=== PATIENT | female | born 1960 | race Caucasian/White ===

== ENCOUNTER → 2019-08-24 07:45 | Outpatient (BNVA) | payer OTHER, SELFPAY | PROVIDERS: Family Provider Family Medicine; Visit Provider Nurse Practitioner Psychiatric/Mental Health | DX: F31.81 Bipolar II disorder (principal) | CPT/HCPCS: 99203 ==

== ENCOUNTER → 2019-09-09 08:23 | Outpatient (BNVA) | payer OTHER, SELFPAY | PROVIDERS: Family Provider Family Medicine; Visit Provider Family Medicine | DX: I10 Essential (primary) hypertension (principal); E11.9 Type 2 diabetes mellitus without complications; E78.5 Hyperlipidemia, unspecified; F17.219 Nicotine dependence, cigarettes, with unspecified nicotine-induced disorders | CPT/HCPCS: 80053; 80061; 82044; 83036; 85025 ==

== ENCOUNTER 2019-09-14 07:50 | Outpatient (CLI) | payer OTHER, SELFPAY ==
--- NOTE | 2019-09-14 07:59 | MM_ITS ---
WS: [id number] BILATERAL SCREENING DIGITAL MAMMOGRAM WITH CAD HISTORY: SCREENING COMPARISON: 08/19/2018, 07/31/2017 Bilateral CC and MLO views submitted. Computer aided detection analyzed. Breast composition: The breasts are heterogeneously dense, which may obscure small masses. No suspici ous masses, microcalcifications or architectural distortion. 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 MM/[place] [id number] IMPRESSION: BI-RADS: 2-Benign FOLLOW UP: 1 Year Follow-up
== END 2019-09-14 07:51 | disposition home or self-care (01) ==
LOC: RADSHAW 07:56
PROVIDERS: Family Provider Family Medicine; PCP Family Medicine; Visit Provider Family Medicine
DX: Z12.31 Encounter for screening mammogram for malignant neoplasm of breast (principal)
CPT/HCPCS: 77067

== ENCOUNTER → 2019-12-01 07:51 | Outpatient (BNVA) | payer OTHER, SELFPAY | PROVIDERS: Family Provider Family Medicine; PCP Family Medicine; Visit Provider Nurse Practitioner Psychiatric/Mental Health | DX: F31.81 Bipolar II disorder (principal); F41.1 Generalized anxiety disorder | CPT/HCPCS: 99212 ==

== ENCOUNTER → 2020-02-25 07:46 | Outpatient (BNVA) | payer OTHER, SELFPAY | PROVIDERS: Family Provider Family Medicine; PCP Family Medicine; Visit Provider Nurse Practitioner Psychiatric/Mental Health | DX: F31.81 Bipolar II disorder (principal) | CPT/HCPCS: G0463 ==

== ENCOUNTER → 2020-03-08 09:08 | Outpatient (BNVA) | payer OTHER, SELFPAY | PROVIDERS: Family Provider Family Medicine; PCP Family Medicine; Visit Provider Nurse Practitioner Women's Health | DX: Z01.419 Encounter for gynecological examination (general) (routine) without abnormal findings (principal); Z78.0 Asymptomatic menopausal state; Z80.0 Family history of malignant neoplasm of digestive organs | CPT/HCPCS: 88175 ==

== ENCOUNTER → 2020-03-09 08:24 | Outpatient (BNVA) | payer OTHER, SELFPAY | PROVIDERS: Family Provider Family Medicine; PCP Family Medicine; Visit Provider Family Medicine | DX: E11.9 Type 2 diabetes mellitus without complications (principal); Z13.6 Encounter for screening for cardiovascular disorders; I10 Essential (primary) hypertension; E78.5 Hyperlipidemia, unspecified; F17.219 Nicotine dependence, cigarettes, with unspecified nicotine-induced disorders; Z68.28 Body mass index [BMI] 28.0-28.9, adult; F17.210 Nicotine dependence, cigarettes, uncomplicated | CPT/HCPCS: 80053; 83036 ==

== ENCOUNTER 2020-03-21 15:39 | Outpatient (CLI) | payer OTHER, SELFPAY ==
--- NOTE | 2020-03-21 16:15 | XR_ITS ---
WS: [id number] SCREENING DEXA SCAN [employer] CLINICAL INFORMATION: Postmenopausal COMPARISON: None. FINDINGS: The L1-L4 bone mineral density measures 1.150 g/cm2. This corresponds to a T score score of -0.2 and Z score of 0.7. Left femoral neck bone mineral density measures 1.005 g/cm2. This corresponds to a T score of 0.0 and Z score of 0.7. Right femoral neck bone mineral density measures 0.986 g/cm2. This corresponds to a T score -0.2of an d Z score of 0.5. Mean femoral neck bone mineral density measures 0.996 g/cm2. This corresponds to a T score of -0.1 an d Z score of 0.6. XR/XR DEXA axial skeleton* [id number] IMPRESSION: Normal bone mineralization. Patient's FRAX calculated 10 year probability for major osteoporotic fracture i s 6.4 % and osteoporotic hip fracture is 0.4%.
== END 2020-03-21 15:40 | disposition home or self-care (01) ==
LOC: RADWPI 15:41
PROVIDERS: Family Provider Family Medicine; PCP Family Medicine; Visit Provider Nurse Practitioner Women's Health
DX: Z78.0 Asymptomatic menopausal state (principal)
CPT/HCPCS: 77080

== ENCOUNTER → 2020-04-21 08:19 | Outpatient (BNVA) | payer OTHER, SELFPAY | PROVIDERS: Family Provider Family Medicine; PCP Family Medicine; Referring Provider Dermatology; Visit Provider Dermatology | DX: Z12.83 Encounter for screening for malignant neoplasm of skin (principal); L82.1 Other seborrheic keratosis; D22.9 Melanocytic nevi, unspecified; E11.9 Type 2 diabetes mellitus without complications | CPT/HCPCS: 99203 ==

== ENCOUNTER → 2020-06-08 08:34 | Outpatient (BNVA) | payer OTHER, SELFPAY | PROVIDERS: Family Provider Family Medicine; PCP Family Medicine; Visit Provider Family Medicine | DX: E11.9 Type 2 diabetes mellitus without complications (principal); I10 Essential (primary) hypertension; F17.219 Nicotine dependence, cigarettes, with unspecified nicotine-induced disorders; Z68.28 Body mass index [BMI] 28.0-28.9, adult | CPT/HCPCS: 80053; 83036 ==

== ENCOUNTER → 2020-06-21 07:48 | Outpatient (BNVA) | payer OTHER, SELFPAY | PROVIDERS: Family Provider Family Medicine; PCP Family Medicine; Visit Provider Nurse Practitioner Psychiatric/Mental Health | DX: F31.81 Bipolar II disorder (principal) | CPT/HCPCS: G0463 ==

== ENCOUNTER 2020-09-21 07:39 | Outpatient (CLI) | payer OTHER, SELFPAY ==
--- NOTE | 2020-09-21 08:00 | MM_ITS ---
WS: [id number] BILATERAL DIGITAL SCREENING MAMMOGRAPHY WITH CAD CLINICAL INFORMATION: screening breast cancer HISTORY: Screening mammogram. No current complaints. COMPARISON: September 14, 2019 TECHNIQUE: Bilateral CC and MLO views. FINDINGS: Scattered fibroglandular densities bilaterally. No suspicious focal mass, asymmetry, calcifications, or architectural distortion. No evidence of malignancy. MM/[place] [id number] IMPRESSION: BI-RADS: 1-Negative FOLLOW UP: 1 Year Follow-up Recommend return to annual screening mammography.
== END 2020-09-21 07:40 | disposition home or self-care (01) ==
PROVIDERS: PCP Family Medicine; Visit Provider Nurse Practitioner Women's Health
DX: Z12.31 Encounter for screening mammogram for malignant neoplasm of breast (principal)
CPT/HCPCS: 77067

== ENCOUNTER → 2020-10-07 08:55 | Outpatient (BNVA) | payer OTHER, SELFPAY | PROVIDERS: PCP Family Medicine; Visit Provider Family Medicine | DX: I10 Essential (primary) hypertension (principal); E78.5 Hyperlipidemia, unspecified; E11.9 Type 2 diabetes mellitus without complications; F17.219 Nicotine dependence, cigarettes, with unspecified nicotine-induced disorders | CPT/HCPCS: 80053; 80061; 82043; 83036; 85025 ==

== ENCOUNTER → 2020-10-25 07:31 | Outpatient (BNVA) | payer OTHER, SELFPAY | PROVIDERS: PCP Family Medicine; Visit Provider Nurse Practitioner Psychiatric/Mental Health | DX: F31.81 Bipolar II disorder (principal); E78.5 Hyperlipidemia, unspecified | CPT/HCPCS: 99213 ==

== ENCOUNTER → 2021-04-14 08:31 | Outpatient (BNVA) | payer OTHER, SELFPAY | PROVIDERS: PCP Family Medicine; Visit Provider Family Medicine | DX: E11.9 Type 2 diabetes mellitus without complications (principal); Z23 Encounter for immunization; I10 Essential (primary) hypertension; E78.5 Hyperlipidemia, unspecified; F17.219 Nicotine dependence, cigarettes, with unspecified nicotine-induced disorders | CPT/HCPCS: 80053; 83036 ==

== ENCOUNTER → 2021-10-13 08:25 | Outpatient (BNVA) | payer OTHER, SELFPAY | PROVIDERS: PCP Family Medicine; Visit Provider Family Medicine | DX: E11.9 Type 2 diabetes mellitus without complications (principal); E78.5 Hyperlipidemia, unspecified; I10 Essential (primary) hypertension | CPT/HCPCS: 80053; 80061; 82043; 83036; 85025 ==

== ENCOUNTER 2021-11-17 07:35 | Outpatient (CLI) | payer OTHER, SELFPAY ==
--- NOTE | 2021-11-17 07:43 | MM_ITS ---
WS: [id number] BILATERAL SCREENING 3D TOMOSYNTHESIS DIGITAL MAMMOGRAM WITH CAD HISTORY: SCREENING COMPARISON: 09/21/2020, 09/14/2019 Bilateral CC and MLO views submitted. Computer aided detection analyzed. Breast composition: There are scattered areas of fibroglandular density. No suspicious masses, microc alcifications or architectural distortion. MM/[place] [id number] IMPRESSION: BI-RADS: 1-Negative FOLLOW UP: 1 Year Follow-up
== END 2021-11-17 07:36 | disposition home or self-care (01) ==
LOC: RADSHAW 07:37
PROVIDERS: PCP Family Medicine; Visit Provider Family Medicine
DX: Z12.31 Encounter for screening mammogram for malignant neoplasm of breast (principal)
CPT/HCPCS: 77063; 77067

== ENCOUNTER 2022-02-12 13:17 | Outpatient (CLI) | payer OTHER, SELFPAY ==
--- NOTE | 2022-02-12 13:26 | XR_ITS ---
WS: [id number] Exam: XR lumbar spine 2-3V* [id number] Date/Time of Exam: 02/12/2022 1:26 PM Reason For Exam: neuropathy of left anterior thigh No fracture or dislocation. Disc spaces are well maintained. Posterior elements are intact. Mild face t DJD at L4-5 and L5-S1. Moderate amount stool in the rectosigmoid colon. Signs of bilateral tubal li gation. XR/XR lumbar spine 2-3V* [id number] IMPRESSION: 1. No fracture or malalignment. Minimal degenerative changes.
== END 2022-02-12 13:18 | disposition home or self-care (01) ==
PROVIDERS: PCP Family Medicine; Visit Provider Family Medicine
DX: G57.92 Unspecified mononeuropathy of left lower limb (principal)
CPT/HCPCS: 72100

== ENCOUNTER → 2022-04-13 08:45 | Outpatient (BNVA) | payer OTHER, SELFPAY | PROVIDERS: PCP Family Medicine; Visit Provider Family Medicine | DX: E11.9 Type 2 diabetes mellitus without complications (principal); M54.16 Radiculopathy, lumbar region | CPT/HCPCS: 80053; 83036 ==

== ENCOUNTER 2022-06-06 13:01 | Outpatient (CLI) | payer OTHER, SELFPAY ==
--- NOTE | 2022-06-06 13:30 | XR_ITS ---
WS: [id number] DEXA (DUAL ENERGY X-RAY ABSORPTIOMETRY) Bone mineral density was performed using a Palette machine. HISTORY: Z78.0 - Asymptomatic menopausal state COMPARISON: 03/21/2020 Lumbar spine BMD (L1-L4): 1.096 g/cm2 T score: -0.7 Z score: 0.1 Total hip BMD: Left: 0.965 g/cm2. T score: -0.3 Z score: 0.3 Right: 0.941 g/cm2. T score: -0.5 Z score: 0.1 10 year probability of a major osteoporotic fracture is 6.9%. Compared to the prior study from 03/21/2020. Lumbar spine bone mineral density has decreased by 4.7%. Bilateral hips bone mineral density has decreased by 4.3%. XR/XR DEXA axial skeleton* [id number] IMPRESSION: NORMAL BONE MINERAL DENSITY based upon the WHO classification for females. Significant decrease in bone mineral density within the lumbar spine and hips s jacky the prior study.
== END 2022-06-06 13:02 | disposition home or self-care (01) ==
LOC: RAD 13:02
PROVIDERS: PCP Family Medicine; Visit Provider Nurse Practitioner Women's Health
DX: Z13.820 Encounter for screening for osteoporosis (principal); Z78.0 Asymptomatic menopausal state
CPT/HCPCS: 77080

== ENCOUNTER 2022-06-11 09:01 | Outpatient (CLI) | payer OTHER, SELFPAY ==
--- NOTE | 2022-06-11 09:30 | MR_ITS ---
WS: [email or web address] MRI LUMBAR SPINE NONCONTRAST TECHNIQUE: Sagittal T1, T2 and STIR imaging. Axial T1 and T2 imaging. CLINICAL INFORMATION: low back pain with left-sided radiculopathy COMPARISON: None. FINDINGS: Normal lumbar alignment. No acute compression. Disc bulging worse L4-L5. L1-L2: Mild facet arthropathy. Spinal canal and foramen are patent. L2-L3: No significant disc bulging. Mild facet arthropathy. Spinal canal and foramen are patent. L3-L4: Slight retrolisthesis. Mild annular bulging. Moderate facet arthropathy. Mild RIGHT foraminal narrowing with a tiny RIGHT foraminal protrusion. L4-L5: LEFT subarticular and proximal foraminal disc extrusion impinges the LEFT subarticular recess and traversing LEFT L5 nerve root. Mild central canal stenosis. In addition, extension into the neura l foramen with severe LEFT foraminal narrowing. This impinges the exiting LEFT L4 nerve root. Mild RI GHT foraminal narrowing. Moderate facet arthropathy. L5-S1: Mild disc bulge with endplate ridging. Slight impingement traversing LEFT S1 nerve root. Mild LEFT foraminal narrowing. RIGHT foramen is patent. Moderate facet arthropathy. Small bilateral renal cysts. Small LEFT adrenal nodule likely adenoma measuring 16 mm. MR/MR lumbar spine wo con* [id number] IMPRESSION: 1. LEFT subarticular and foraminal extrusion L4-L5 impinges the traversing LEF T L5 nerve root and exiting LEFT L4 nerve root with severe LEFT foraminal narro wing. Recommend correlation LEFT L4 and L5 nerve root symptoms. Mild central ca nal stenosis at this level. 2. Mild disc bulging and osteophytic ridging L5-S1 slightly impinges the LEFT S1 nerve root. Mild LEFT L5-S1 foraminal narrowing. 3. Tiny RIGHT foraminal protrusion L3-L4 with mild RIGHT foraminal narrowing.
== END 2022-06-11 09:02 | disposition home or self-care (01) ==
PROVIDERS: PCP Family Medicine; Visit Provider Family Medicine
DX: M54.16 Radiculopathy, lumbar region (principal); M48.061 Spinal stenosis, lumbar region without neurogenic claudication; M51.26 Other intervertebral disc displacement, lumbar region
CPT/HCPCS: 72148

== ENCOUNTER → 2022-10-04 13:21 | Outpatient (BNVA) | payer OTHER, SELFPAY | PROVIDERS: PCP Family Medicine; Visit Provider Orthopaedic Surgery | DX: M47.816 Spondylosis without myelopathy or radiculopathy, lumbar region (principal); M54.16 Radiculopathy, lumbar region | CPT/HCPCS: 72110 ==

== ENCOUNTER → 2022-10-12 08:22 | Outpatient (BNVA) | payer OTHER, SELFPAY | PROVIDERS: PCP Family Medicine; Visit Provider Family Medicine | DX: R35.0 Frequency of micturition (principal); I10 Essential (primary) hypertension; E78.5 Hyperlipidemia, unspecified; E11.9 Type 2 diabetes mellitus without complications; R30.0 Dysuria | CPT/HCPCS: 80053; 80061; 81003; 82043; 83036; 85025 ==

== ENCOUNTER 2022-10-26 05:49 | Day surgery (SDC) | payer OTHER, SELFPAY ==
[2022-10-19 09:17] VITALS: BMI 31.2
--- NOTE | 2022-10-19 09:34 | ANES.PREANE2 ---
Pre-Anesthetic Assessment Height/Weight: Height 1.65 m Weight 85.275 kg Operation Date: 10/26/22 07:00 Proposed Procedures p Open Spine Decompression:L4/5 22898,M54.16(Not Applicable) - Nathanael Blevins DO Familial anesthetic complications: None Social Tobacco and No alcohol Exam alert, oriented x 3, clear to auscultation bilaterally and regular rate & rhythm Airway Mallampati: Class I Dentition: full CV/HEM Hypertension Metabolic Diabetes Mellitus and Hyperlipidemia Anesthetic Plan ASA status: 3 Anesthesia: General Risk of > 500 ml blood loss (7ml/kg in children): No Medications/Allergies Home Medications Medication Instructions Recorded Confirmed Last Taken Type biotin 10,000 mcg capsule 10,000 mcg PO DAILY 08/24/19 10/19/22 10/19/22 History calcium carbonate 600 mg calcium 600 mg PO DAILY 08/24/19 10/19/22 10/19/22 History (1,500 mg) tablet (Calcium) cholecalciferol (vitamin D3) 25 25 mcg PO DAILY 08/24/19 10/19/22 10/19/22 History mcg (1,000 unit) capsule lactobacillus combination no.8 3 3,000 mmu cells PO DAILY 08/24/19 10/19/22 10/19/22 History billion cell capsule (Adult Probiotic) multivitamin 1 tab PO DAILY 08/24/19 10/19/22 10/19/22 History vitamin B complex (B 1 tab PO DAILY 08/24/19 10/19/22 10/19/22 History Complex-Vitamin B12 tablet) methylcellulose (laxative) 500 mg 500 mg PO DAILY 03/09/20 10/19/22 10/19/22 History tablet (Citrucel) magnesium 30 mg tablet 30 mg PO DAILY 04/14/21 10/19/22 10/19/22 History fish, borage, flaxseed oils-omega 1 cap PO DAILY 12/12/21 10/19/22 10/12/22 History 3,6,9 cb #1 400 mg-400 mg-400 mg cap (Triple [place] 3-6-9) acetaminophen 650 mg 650 mg PO Q12H 07/03/22 10/19/22 10/19/22 History tablet,extended release (Tylenol Arthritis Pain) vit A 300 mcg-C 200 mg-E 27 1 tab PO DAILY 07/03/22 10/19/22 10/12/22 History mg-lutein 2 mg and minerals tablet (Ocuvite with Lutein) gabapentin 100 mg capsule 100 mg PO TID #90 caps 10/12/22 10/19/22 10/19/22 Rx (Neurontin) lisinopril 5 mg tablet 5 mg PO DAILY #90 tabs 10/12/22 10/19/22 10/19/22 Rx semaglutide 0.25 mg or 0.5 mg (2 0.5 mg (0.4 mL) SUBCUT .weekly 90 10/14/22 10/19/22 10/19/22 Rx mg/1.5 mL) subcutaneous pen days #1.5 mL injector (Ozempic) cefdinir 300 mg capsule 300 mg PO BID 10 days #20 caps 10/16/22 10/19/22 10/19/22 Rx aripiprazole 10 mg tablet (Abilify) 10 mg PO QPM 10/19/22 10/19/22 10/18/22 History atorvastatin 40 mg tablet 40 mg PO QPM 10/19/22 10/19/22 10/18/22 History meloxicam 15 mg tablet 15 mg PO DAILY 10/19/22 10/19/22 10/12/22 History Allergies Allergy/AdvReac Type Severity Reaction Status Date / Time No Known Allergies Allergy Verified 10/19/22 09:05 [facility] Anesthesia Medical History Benign essential HTN Bipolar 2 disorder Diabetes mellitus, without long-term current use of insulin Dyslipidemia Family history of colon cancer No pertinent past medical history neghx: thyroid,dvt/pe PCP: Dr. Young Sacroiliac inflammation Strain of thoracic region Surgical History H/O knee surgery (~2008) right knee--- arthroscopic History of elbow surgery (~2008) right elbow History of endometrial ablation (~2008) Family History Father Hypertension Diabetes Stroke Grandmother Colon cancer Paternal grandmother--dx age unknown Diabetes Maternal grandmother Heart disease Maternal grandmother Brother Colon cancer dx age 62 Denies family history of Ovarian cancer Hyperlipidemia Breast cancer Family history of thyroid problem Uterine cancer Social History Smoking and tobacco status: current every day smoker (0.5 PPD) Smoking risk assessment/counseling performed?: Yes Alcohol intake: current Alcohol intake frequency: holidays/special occasions only Alcohol type: wine Desire information about alcohol rehabilitation?: No Counseling given: No Desire information about substance/drug rehabilitation?: No Counseling given: No Data Anesthesia Cardiac Studies: No Data to Display
[2022-10-26] VITALS (16 sets, daily range): BP systolic 133–193; BP diastolic 84–118; PULSE 91–113; RESP 12–20; TEMP 36.3–36.6; O2SAT 93–100
--- NOTE | 2022-10-26 06:15 | W.PM.OPSUD ---
Surgery/Procedure H&P Update DATE OF PROCEDURE: October 26, 2022 DATE H&P PERFORMED: 10/04/22 H&P UPDATE INFORMATION: I have reviewed H&P completed within last 30 days, I have examined patient prior to procedure and No changes to prior documentation PREOP DIAGNOSIS: Lumbar radiculopathy PLANNED PROCEDURE: Operation Date: 10/26/22 07:00 Proposed Procedures p Open Spine Decompression:L4/5 81321,M54.16(Not Applicable) - Nathanael Blevins DO
[2022-10-26 06:18] LABS: Glucose Point of Care 123 mg/dL (70-110)
[2022-10-26] MEDS: sodium chloride 0.9% 1,000 ML 30 ML IV (06:19)
[2022-10-26 06:21] LABS: Add Urine Microscopic? YES; Bilirubin Urine Neg (Negative); Blood Urine 2+ (Negative); Glucose Urine UA Norm (Normal); Ketones Urine Negative (Negative); Leukocyte Esterase Urine Trace (Negative); Nitrate Urine Negative (Negative); Protein Urine Neg (Negative); Urine Appearance Hazy (CLEAR); Urine Color Yellow (Yellow); Urobilinogen Urine Neg (Negative); pH Urine 5 (5-7)
[2022-10-26 06:22] LABS: Add Urine Culture? Yes; Bacteria Urine 1+ /hpf; Mucus Urine 2+ /hpf; Squamous Epithelial Cell Urine 0-4 /hpf (0-5); WBC Urine 0-4 /hpf (0-5)
--- NOTE | 2022-10-26 06:48 | ANES.PREANE2 ---
Pre-Anesthetic Assessment Height/Weight: Height 1.65 m Weight 85.275 kg Temp Pulse Resp BP Pulse Ox O2 Del Method 97.8 F 99 16 133/89 98 10/26/22 06:05 10/26/22 06:05 10/26/22 06:05 10/26/22 06:05 10/26/22 06:05 10/26/22 06:06 Preop Diagnosis: Lumbar radiculopathy Operation Date: 10/26/22 07:00 Proposed Procedures p Open Spine Decompression:L4/5 99460,M54.16(Not Applicable) - Nathanael Blevins DO Last intake: Intake Last Liquid Date 10/25/22 Last Liquid Time 22:00 Last Solid Date 10/25/22 Last Solid Time 20:00 Social No alcohol and No tobacco Exam alert, oriented x 3, clear to auscultation bilaterally and regular rate & rhythm Airway Submandibular: within normal limits Cervical ROM: within normal limits Mallampati: Class II Pulmonary None reported CV/HEM Hypertension None reported Hepatic None reported GI None reported Metabolic Diabetes Mellitus Anesthetic Plan ASA status: 2 Anesthesia: General Medications/Allergies Home Medications Medication Instructions Recorded Confirmed Last Taken Type biotin 10,000 mcg capsule 10,000 mcg PO DAILY 08/24/19 10/19/22 10/19/22 History calcium carbonate 600 mg calcium 600 mg PO DAILY 08/24/19 10/19/22 10/19/22 History (1,500 mg) tablet (Calcium) cholecalciferol (vitamin D3) 25 25 mcg PO DAILY 08/24/19 10/19/22 10/19/22 History mcg (1,000 unit) capsule lactobacillus combination no.8 3 3,000 mmu cells PO DAILY 08/24/19 10/19/22 10/19/22 History billion cell capsule (Adult Probiotic) multivitamin 1 tab PO DAILY 08/24/19 10/19/22 10/19/22 History vitamin B complex (B 1 tab PO DAILY 08/24/19 10/19/22 10/19/22 History Complex-Vitamin B12 tablet) methylcellulose (laxative) 500 mg 500 mg PO DAILY 03/09/20 10/19/22 10/19/22 History tablet (Citrucel) magnesium 30 mg tablet 30 mg PO DAILY 04/14/21 10/19/22 10/19/22 History fish, borage, flaxseed oils-omega 1 cap PO DAILY 12/12/21 10/19/22 10/15/22 History 3,6,9 cb #1 400 mg-400 mg-400 mg cap (Triple [place] 3-6-9) acetaminophen 650 mg 650 mg PO Q12H 07/03/22 10/19/22 10/19/22 History tablet,extended release (Tylenol Arthritis Pain) vit A 300 mcg-C 200 mg-E 27 1 tab PO DAILY 07/03/22 10/19/22 10/13/22 History mg-lutein 2 mg and minerals tablet (Ocuvite with Lutein) gabapentin 100 mg capsule 100 mg PO TID #90 caps 10/12/22 10/19/22 10/19/22 Rx (Neurontin) lisinopril 5 mg tablet 5 mg PO DAILY #90 tabs 10/12/22 10/19/22 10/25/22 08:00 Rx semaglutide 0.25 mg or 0.5 mg (2 0.5 mg (0.4 mL) SUBCUT .weekly 90 10/14/22 10/19/22 10/25/22 Rx mg/1.5 mL) subcutaneous pen days #1.5 mL injector (Ozempic) cefdinir 300 mg capsule 300 mg PO BID 10 days #20 caps 10/16/22 10/19/22 10/25/22 Rx aripiprazole 10 mg tablet (Abilify) 10 mg PO QPM 10/19/22 10/19/22 10/25/22 20:00 History atorvastatin 40 mg tablet 40 mg PO QPM 10/19/22 10/19/22 10/25/22 20:00 History meloxicam 15 mg tablet 15 mg PO DAILY 10/19/22 10/19/22 10/15/22 History Allergies Allergy/AdvReac Type Severity Reaction Status Date / Time No Known Allergies Allergy Verified 10/19/22 09:05 Current Medications Generic Name Dose Route Start Last Admin Trade Name Freq PRN Reason Stop Dose Admin Sodium Chloride 1,000 mls @ 30 mls/hr 10/26/22 06:00 10/26/22 06:19 Sodium Chloride 0.9% IV 10/27/22 05:59 30 mls/hr .Q24H TULIO Administration PFSH Anesthesia Medical History Benign essential HTN Bipolar 2 disorder Diabetes mellitus, without long-term current use of insulin Dyslipidemia Family history of colon cancer No pertinent past medical history neghx: thyroid,dvt/pe PCP: Dr. Young Sacroiliac inflammation Strain of thoracic region Surgical History H/O knee surgery (~2008) right knee--- arthroscopic History of elbow surgery (~2008) right elbow History of endometrial ablation (~2008) Family History Father Hypertension Diabetes Stroke Grandmother Colon cancer Paternal grandmother--dx age unknown Diabetes Maternal grandmother Heart disease Maternal grandmother Brother Colon cancer dx age 62 Denies family history of Ovarian cancer Hyperlipidemia Breast cancer Family history of thyroid problem Uterine cancer Social History Smoking and tobacco status: current every day smoker (0.5 PPD) Smoking risk assessment/counseling performed?: Yes Alcohol intake: current Alcohol intake frequency: holidays/special occasions only Alcohol type: wine Desire information about alcohol rehabilitation?: No Counseling given: No Desire information about substance/drug rehabilitation?: No Counseling given: No Data Anesthesia Urine 10/26/22 Range/Units 06:00 Urine Color Yellow (Yellow) Urine Appearance Hazy A (CLEAR) Urine pH 5 (5-7) Ur Specific [place] 1.020 (1.005-1.030) Urine Protein Neg (Negative) Urine Glucose (UA) Norm (Normal) Urine Ketones Negative (Negative) Urine Nitrate Negative (Negative) Urine Bilirubin Neg (Negative) Ur Leukocyte Esterase Trace H (Negative) Urine RBC 5-10 H (0-2) /hpf Urine WBC 0-4 H (0-5) /hpf Cardiac Studies: No Data to Display
[2022-10-26] MEDS: ceFAZolin 2,000 MG in sodium chloride 0.9% (plus) 50 ML 100 MG IV (07:00)
[2022-10-26] MEDS: lidocaine-epi 1% 20 mL INJ INJECTION (07:40)
[2022-10-26] MEDS: labetalol 5 mg/mL SDV 20mL IVP (09:11)
--- NOTE | 2022-10-26 09:14 | PM.OP ---
Operative Report Date of procedure: October 26, 2022 Pre-op diagnosis: Preop Diagnosis Lumbar radiculopathy Post-op diagnosis: same Procedure done: 1. Left L4/5 laminectomy with partial facetectomy and diskectomy Surgeon: Nathanael Blevins Online Advertising Manager: Felton Chi Online Advertising Manager: The surgical coordinator, SKYLER Marks was needed for his expertise under the microscope. He was important and necessary throughout the procedure to complete in a safe and timely manner. He assisted with patient positioning prepping and draping tissue retraction suctioning of the operative field protection of the dural sac and tissue closure Estimated blood loss (mL): 50 Procedure: 1. Left L4/5 laminectomy with partial facetectomy and diskectomy Patient is brought to the operative suite. After undergoing anesthesia they are placed in the prone position. All areas of impingement are well padded. Patient is then prepped and draped in the normal sterile fashion. A skin incision is made over the L4/5 level. This is confirmed under c-arm guidance. A series of dilators are passed and the tubular retractor is docked on the L4 lamina. A bovie is used to clear the soft tissue off the lamina and the L 4/5 facet joint. A high speed william is then used to perform the laminectomy and take down the medial aspect of the L 4/5 facet joint. A kerrison rongeure was then used to take down the remaining lamina and smooth the edge of the laminectomy up to the point where the ligamentum flavum attaches. Attention was then brought to the medial aspect of the facet joint. The remaining medial aspect of the superior and inferior aspect of the facet joint were taken down with the kerrison from the pedicle of L4 to L 5. The facet joint had significant hypertrophy. Attention was then brought to the Ligamentum Flavum. The ligament was taken down from the lamina of L4 to L5 and out medially to the remaining facet joint. The ligament was thick. The dura was then exposed. The dura was in good repair. The disc was identified. The annulotomy was performed using knife. Once this was done a large piece of disc was removed from the foramen and discectomy was performed the space was irrigated and more fragments were came him out the space was irrigated multiple times until there were no more fragments coming out. The L4 nerve was then traced with a curette out the L4/5 foramen and found to be adequately decompressed. The L5 nerve was traced with a curette around the L5 pedicle. The lateral recess was opened with a kerrison helping to further decompress the L5 nerve. Wound is then irrigated copiously with saline and surgiflo is used to stop any bleeding. The tubular retractor is removed and the wound is closed with vicryl and monocryl suture. Glue is then used to protect the wound. A sterile dressing is then placed. Patient was then placed in the supine position and transferred to the PACU in stable condition.
[2022-10-26] MEDS: fentaNYL 50 mcg/mL INJ 2mL IVP ×2 (09:16→09:32)
[2022-10-26] MEDS: HYDROcodone-acetaminophen 5-325 mg Tablet 1 TAB PO (10:05)
[2022-10-26] MEDS: ondansetron 2 mg/ML SDV 2 mL 4 MG IVP (10:06)
[2022-10-26] MEDS: metoclopramide 5 mg/mL SDV 2 mL 10 MG IVP (10:32)
--- NOTE | 2022-10-26 10:46 | ANE.PACU2 ---
Inpatient post-anesthesia follow up: Vital signs: Temperature 97.3 F Pulse Rate 95 Respiratory Rate 16 Blood Pressure 139/84 Pulse Oximetry 95 Oxygen Delivery Me thod Room Air Oxygen Flow Rate 2 Fraction of Inspir ed Oxygen Hydration adequate: Yes Nausea and vomiting: No Pain level: Adequetly controlled Mental status: Baseline
--- NOTE | 2022-10-26 12:31 | XR_ITS ---
WS: [id number] XR lumbar spine 1V [id number] REASON FOR EXAM: OR PICS FINDINGS: Intraoperative image demonstrates surgical instrument overlying the left L4-L5 disc space. XR/XR lumbar spine 1V [id number] IMPRESSION: Localization of the lumbar spine in surgery as above.
== END 2022-10-26 11:16 | disposition home or self-care (01) ==
PROVIDERS: PCP Family Medicine; Visit Provider Orthopaedic Surgery
PROC: (CPT 63001; principal; 2022-10-26 07:00)
DX: M54.16 Radiculopathy, lumbar region (principal); I10 Essential (primary) hypertension; E78.5 Hyperlipidemia, unspecified; E11.9 Type 2 diabetes mellitus without complications; Z79.85 Long-term (current) use of injectable non-insulin antidiabetic drugs; F17.200 Nicotine dependence, unspecified, uncomplicated
CPT/HCPCS: 63047; 36416; 72020; 76000; 81001; 82962; 87086; J0690; J1100; J1170; J2250; J2370; J2405; J2704; J2765; J3010; J3490; J7030

== ENCOUNTER → 2022-11-08 09:16 | Outpatient (BNVA) | payer OTHER, SELFPAY | PROVIDERS: PCP Family Medicine; Visit Provider Physician Assistant | DX: Z98.890 Other specified postprocedural states (principal) | CPT/HCPCS: 72100 ==

== ENCOUNTER 2022-11-20 08:30 | Outpatient (CLI) | payer OTHER, SELFPAY ==
--- NOTE | 2022-11-20 08:41 | MM_ITS ---
WS: [id number] BILATERAL 3D TOMOSYNTHESIS DIGITAL SCREENING MAMMOGRAPHY WITH CAD CLINICAL INFORMATION: SCREENING HISTORY: Screening mammogram. No current complaints. COMPARISON: 2021 TECHNIQUE: Bilateral CC and MLO views. FINDINGS: Scattered fibroglandular densities bilaterally. Clustered calcifications RIGHT breast are new from pr evious. Recommend spot magnification views in further evaluation. LEFT breast is unremarkable and unchanged. MM/[place] [id number] IMPRESSION: BI-RADS: 0-Incomplete: Need additional imaging evaluation FOLLOW UP: Need Additional Imaging New clustered calcifications RIGHT breast. Recommend spot magnification views.
== END 2022-11-20 08:31 | disposition home or self-care (01) ==
LOC: RAD 08:33
PROVIDERS: PCP Family Medicine; Visit Provider Family Medicine
DX: Z12.31 Encounter for screening mammogram for malignant neoplasm of breast (principal)
CPT/HCPCS: 77063; 77067

== ENCOUNTER 2022-11-27 13:52 | Outpatient (CLI) | payer OTHER, SELFPAY ==
--- NOTE | 2022-11-27 14:00 | MM_ITS ---
WS: [id number] RIGHT 3D TOMOSYNTHESIS DIGITAL MAMMOGRAPHY WITH CAD CLINICAL INFORMATION: R92.8 - Other abnormal and inconclusive findings on diagn... HISTORY: Additional views for calcifications COMPARISON: November 20, 2022 TECHNIQUE: 3 views of the right breast were obtained. FINDINGS: Scattered fibroglandular densities of the right breast. Stable clustered calcifications inner quadran t RIGHT breast. Calcifications have a coarse appearance on the spot magnification views today. These have a benign appearance. Recommend return to screening mammography. MM/[place] [id number] IMPRESSION: BI-RADS: 2-Benign FOLLOW UP: 1 Year Follow-up Recommend return to annual screening mammography.
== END 2022-11-27 13:53 | disposition home or self-care (01) ==
LOC: RAD 13:54
PROVIDERS: PCP Family Medicine; Visit Provider Family Medicine
DX: R92.8 Other abnormal and inconclusive findings on diagnostic imaging of breast (principal)
CPT/HCPCS: 77061; G0279

== ENCOUNTER → 2023-04-12 08:36 | Outpatient (BNVA) | payer OTHER, SELFPAY | PROVIDERS: PCP Family Medicine; Visit Provider Family Medicine | DX: E11.9 Type 2 diabetes mellitus without complications (principal); R35.0 Frequency of micturition; I10 Essential (primary) hypertension; E78.5 Hyperlipidemia, unspecified; M51.16 Intervertebral disc disorders with radiculopathy, lumbar region; F17.219 Nicotine dependence, cigarettes, with unspecified nicotine-induced disorders | CPT/HCPCS: 80053; 81000; 83036 ==

== ENCOUNTER → 2023-06-20 15:40 | Outpatient (BNVA) | payer OTHER, SELFPAY | PROVIDERS: PCP Family Medicine; Visit Provider Nurse Practitioner Women's Health | DX: Z12.4 Encounter for screening for malignant neoplasm of cervix (principal); Z01.419 Encounter for gynecological examination (general) (routine) without abnormal findings | CPT/HCPCS: 87624 ==

== ENCOUNTER → 2023-11-14 08:47 | Outpatient (BNVA) | payer OTHER, SELFPAY | PROVIDERS: PCP Family Medicine; Visit Provider Family Medicine | DX: E11.9 Type 2 diabetes mellitus without complications (principal); I10 Essential (primary) hypertension; E78.5 Hyperlipidemia, unspecified; Z12.31 Encounter for screening mammogram for malignant neoplasm of breast; F17.219 Nicotine dependence, cigarettes, with unspecified nicotine-induced disorders | CPT/HCPCS: 80053; 80061; 82043; 83036; 85025 ==

== ENCOUNTER 2023-12-11 07:45 | Outpatient (CLI) | payer OTHER, SELFPAY ==
--- NOTE | 2023-12-11 08:00 | MM_ITS ---
WS: [id number] SCREENING DIGITAL TOMOSYNTHESIS MAMMOGRAM WITH CAD HISTORY: screening mammogram COMPARISON: 11/27/2022 and 11/20/2022 and 11/17/2021 Bilateral CC and MLO with tomosynthesis views submitted. Synthetic mammography reviewed. Computer aid ed detection analyzed. Breast composition: There are scattered areas of fibroglandular density. No suspicious masses, microc alcifications or architectural distortion. There are a few scattered benign-appearing calcifications. MM/[place] [id number] IMPRESSION: BI-RADS: 2-Benign FOLLOW UP: 1 Year Follow-up
== END 2023-12-11 07:46 | disposition home or self-care (01) ==
LOC: RAD 07:46
PROVIDERS: PCP Family Medicine; Visit Provider Family Medicine
DX: Z12.31 Encounter for screening mammogram for malignant neoplasm of breast (principal)
CPT/HCPCS: 77063; 77067

== ENCOUNTER → 2024-05-18 09:26 | Outpatient (BNVA) | payer OTHER, SELFPAY | PROVIDERS: PCP Family Medicine; Visit Provider Family Medicine | DX: I10 Essential (primary) hypertension (principal); E11.9 Type 2 diabetes mellitus without complications; E78.5 Hyperlipidemia, unspecified | CPT/HCPCS: 80053; 82043; 83036; 84443 ==

== ENCOUNTER → 2024-06-30 10:27 | Outpatient (BNVA) | payer OTHER, SELFPAY | PROVIDERS: PCP Family Medicine; Visit Provider Nurse Practitioner Women's Health | DX: Z01.419 Encounter for gynecological examination (general) (routine) without abnormal findings (principal); Z78.0 Asymptomatic menopausal state | CPT/HCPCS: 82306; 87624 ==

== ENCOUNTER 2024-07-13 13:22 | Outpatient (CLI) | payer OTHER, SELFPAY ==
--- NOTE | 2024-07-13 14:00 | XR_ITS ---
WS: [id number] DEXA (DUAL ENERGY X-RAY ABSORPTIOMETRY) Bone mineral density was performed using a [employer] machine. HISTORY: Z78.0 - Asymptomatic menopausal state COMPARISON: 06/06/2022 Lumbar spine BMD (L1-L4): 1.044 g/cm2 T score: -1.1 Z score: -0.3 Total hip BMD: Left: 0.982 g/cm2. T score: -0.2 Z score: 0.5 Right: 0.937 g/cm2. T score: -0.6 Z score: 0.1 10 year probability of a major osteoporotic fracture is 7.2%. Compared to the prior study from 06/06/2022. Lumbar spine bone mineral density has decreased by 4.7%. Bilateral hips bone mineral density has increased by 0.7%. XR/XR DEXA axial skeleton* [id number] IMPRESSION: OSTEOPENIA based upon the WHO classification for females. Significant decrease in lumbar spine bone mineral density since the prior study . No significant change in the hips.
== END 2024-07-13 13:23 | disposition home or self-care (01) ==
LOC: RAD 13:23
PROVIDERS: PCP Family Medicine; Visit Provider Nurse Practitioner Women's Health
DX: Z13.820 Encounter for screening for osteoporosis (principal); Z78.0 Asymptomatic menopausal state; M85.80 Other specified disorders of bone density and structure, unspecified site
CPT/HCPCS: 77080

== ENCOUNTER 2024-08-19 06:24 | Day surgery (SDC) | payer OTHER, SELFPAY ==
[2024-08-19] VITALS (11 sets, daily range): BP systolic 124–193; BP diastolic 90–114; PULSE 77–101; RESP 12–18; TEMP 36.4–36.5; O2SAT 93–99; BMI 30.7
[2024-08-19] MEDS: sodium chloride 0.9% 500 ML 15 ML IV (06:43)
[2024-08-19 06:50] LABS: Glucose Point of Care 136 mg/dL (70-110)
--- NOTE | 2024-08-19 07:34 | P.HP_ITS ---
Providers/Chief Complaint Primary Care Provider: Toma Robles MD Chief Complaint: Z12.11 History of Present Illness Oumou Johnson is a 64 year old female Review of Systems General: Reports: 10 or more systems reviewed and unremarkable except in HPI and below Medications/Allergies Home Medications Medication Instructions Recorded Confirmed Last Taken Type biotin 10,000 mcg capsule 10,000 mcg PO DAILY 08/24/19 08/17/24 08/18/24 History calcium carbonate (Calcium 600) 600 mg PO DAILY 08/24/19 08/17/24 08/18/24 History cholecalciferol (vitamin D3) 25 50 mcg PO DAILY 08/24/19 08/17/24 08/18/24 History mcg (1,000 unit) capsule multivitamin 1 tab PO DAILY 08/24/19 08/17/24 08/18/24 History vitamin B complex (B 1 tab PO DAILY 08/24/19 08/17/24 08/18/24 History Complex-Vitamin B12 tablet) fish, borage, flaxseed oils-omega 1 cap PO DAILY 12/12/21 08/17/24 08/18/24 History 3,6,9 cb #1 400 mg-400 mg-400 mg cap (Triple [place] 3-6-9) atorvastatin 40 mg tablet 40 mg PO QPM #90 tabs 05/18/24 08/17/24 08/18/24 Rx coQ10 (ubiquinol) 100 mg capsule 100 mg PO DAILY 06/30/24 08/17/24 08/17/24 History (Qunol Tristan CoQ10) aripiprazole 10 mg tablet (Abilify) 10 mg PO QPM #30 tabs 07/06/24 08/17/24 08/18/24 Rx ospemifene 60 mg tablet (Osphena) 60 mg PO DAILY #90 tabs 07/24/24 08/17/24 08/16/24 Rx Citracal 2 tab PO DAILY 08/17/24 08/17/24 08/18/24 History apple cider vinegar 600 mg capsule 600 mg PO DAILY 08/17/24 08/17/24 08/18/24 History cinnamon bark 500 mg capsule 500 mg PO BID 08/17/24 08/17/24 08/18/24 History (Cinnamon) lisinopril 5 mg tablet 5 mg PO DAILY 08/17/24 08/17/24 08/18/24 History magnesium 200 mg tablet 400 mg PO DAILY 08/17/24 08/17/24 08/18/24 History meloxicam 15 mg tablet 15 mg PO DAILY 08/17/24 08/17/24 08/18/24 History semaglutide 0.25 mg or 0.5 mg (2 0.5 mg SUBCUT .WEEKLY 08/17/24 08/19/24 08/07/24 History mg/3 mL) subcutaneous pen injector ([employer]) vit C-vit Y-bdxigh-qtistxta-omega 1 cap PO DAILY 08/17/24 08/17/24 08/18/24 History 3 100 mg-15 unit-2 mg-100 mg capsule Allergies Allergy/AdvReac Type Severity Reaction Status Date / Time No Known Allergies Allergy Verified 08/17/24 08:13 PFSH Acute PFSH: Medical History Nicotine dependence, cigarettes, with unspecified nicotine-induced disorders Family history of colon cancer (~07/2023) Sacroiliac inflammation Strain of thoracic region Benign essential HTN Diabetes mellitus, without long-term current use of insulin Dyslipidemia Bipolar 2 disorder Surgical History Hx of colonoscopy 12.11.19--normal; repeat 5 yrs; brother with colon cancer Status post lumbar laminectomy History of endometrial ablation (~2008) H/O knee surgery (~2008) right knee--- arthroscopic History of elbow surgery (~2008) right elbow Family History Father Hypertension Diabetes Stroke Parkinson disease Grandmother Colon cancer Paternal grandmother--dx age unknown Diabetes Maternal grandmother Heart disease Maternal grandmother Brother Colon cancer dx age 62 Denies family history of Ovarian cancer Hyperlipidemia Breast cancer Family history of thyroid problem Uterine cancer Social History Smoking and tobacco/nicotine status: current every day tobacco/nicotine user cigarettes Packs smoked per day: 0.5 Years cigarettes smoked: 20 Alcohol intake: current Alcohol intake frequency: holidays/special occasions only Alcohol type: wine Substance/Drug Use: never Household members: spouse Marital status: Number of children: 4 Highest education level completed: Bachelor's Degree Current occupational status: employed 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
--- NOTE | 2024-08-19 07:43 | P.ANESASSM_ITS ---
Pre-Anesthetic Assessment Height/Weight: Height 1.65 m Weight 83.915 kg Temp Pulse Resp BP Pulse Ox O2 Del Method 97.6 F 86 18 124/95 99 Room Air 08/19/24 06:38 08/19/24 06:38 08/19/24 06:38 08/19/24 06:38 08/19/24 06:38 08/19/24 06:38 Preop Diagnosis: screening Operation Date: 08/19/24 07:30 Proposed Procedures p Colonoscopy - 44067, G0105, Z12.11, Z80.0(Not Applicable) - Felton Barrios DO Familial anesthetic complications: none Was Beta Kiara taken within 24 hours: N/A Was Clonidine taken within 24 hours: N/A Last intake: Intake Last Liquid Date 08/18/24 Last Liquid Time 20:00 Last Solid Date 08/17/24 Last Solid Time 18:00 Social Tobacco and No alcohol Exam alert, oriented x 3 and clear to auscultation bilaterally Airway Mallampati: Class II Dentition: full History/ROS No significant history except as noted Pulmonary None reported CV/HEM Hypertension None reported Hepatic None reported GI None reported Metabolic Diabetes Mellitus [facility] None reported Neuropsych None reported Anesthetic Plan ASA status: 2 Anesthesia: Anesthesia Evaluation and MAC Risk of > 500 ml blood loss (7ml/kg in children): No Medications/Allergies Home Medications Medication Instructions Recorded Confirmed Last Taken Type biotin 10,000 mcg capsule 10,000 mcg PO DAILY 08/24/19 08/17/24 08/18/24 History calcium carbonate (Calcium 600) 600 mg PO DAILY 08/24/19 08/17/24 08/18/24 History cholecalciferol (vitamin D3) 25 50 mcg PO DAILY 08/24/19 08/17/24 08/18/24 History mcg (1,000 unit) capsule multivitamin 1 tab PO DAILY 08/24/19 08/17/24 08/18/24 History vitamin B complex (B 1 tab PO DAILY 08/24/19 08/17/24 08/18/24 History Complex-Vitamin B12 tablet) fish, borage, flaxseed oils-omega 1 cap PO DAILY 12/12/21 08/17/24 08/18/24 History 3,6,9 cb #1 400 mg-400 mg-400 mg cap (Triple [place] 3-6-9) atorvastatin 40 mg tablet 40 mg PO QPM #90 tabs 05/18/24 08/17/24 08/18/24 Rx coQ10 (ubiquinol) 100 mg capsule 100 mg PO DAILY 06/30/24 08/17/24 08/17/24 History (Qunol Tristan CoQ10) aripiprazole 10 mg tablet (Abilify) 10 mg PO QPM #30 tabs 07/06/24 08/17/24 08/18/24 Rx ospemifene 60 mg tablet (Osphena) 60 mg PO DAILY #90 tabs 07/24/24 08/17/24 08/16/24 Rx Citracal 2 tab PO DAILY 08/17/24 08/17/24 08/18/24 History apple cider vinegar 600 mg capsule 600 mg PO DAILY 08/17/24 08/17/24 08/18/24 History cinnamon bark 500 mg capsule 500 mg PO BID 08/17/24 08/17/24 08/18/24 History (Cinnamon) lisinopril 5 mg tablet 5 mg PO DAILY 08/17/24 08/17/24 08/18/24 History magnesium 200 mg tablet 400 mg PO DAILY 08/17/24 08/17/24 08/18/24 History meloxicam 15 mg tablet 15 mg PO DAILY 08/17/24 08/17/24 08/18/24 History semaglutide 0.25 mg or 0.5 mg (2 0.5 mg SUBCUT .WEEKLY 08/17/24 08/19/24 08/07/24 History mg/3 mL) subcutaneous pen injector (Ozempic) vit C-vit I-nanamv-rwtnqpur-omega 1 cap PO DAILY 08/17/24 08/17/24 08/18/24 History 3 100 mg-15 unit-2 mg-100 mg capsule Allergies Allergy/AdvReac Type Severity Reaction Status Date / Time No Known Allergies Allergy Verified 08/17/24 08:13 Current Medications Generic Name Dose Route Start Last Admin Trade Name Freq PRN Reason Stop Dose Admin Sodium Chloride 500 mls @ 15 mls/hr 08/19/24 06:24 08/19/24 06:43 Sodium Chloride 0.9% IV 08/20/24 06:23 15 mls/hr .Q24H PRN Administration COLONOSCOPY FLUIDS PFSH Anesthesia Medical History Nicotine dependence, cigarettes, with unspecified nicotine-induced disorders Family history of colon cancer (~07/2023) Sacroiliac inflammation Strain of thoracic region Benign essential HTN Diabetes mellitus, without long-term current use of insulin Dyslipidemia Bipolar 2 disorder Surgical History Hx of colonoscopy 07.01.19--normal; repeat 5 yrs; brother with colon cancer Status post lumbar laminectomy History of endometrial ablation (~2008) H/O knee surgery (~2008) right knee--- arthroscopic History of elbow surgery (~2008) right elbow Family History Father Hypertension Diabetes Stroke Parkinson disease Grandmother Colon cancer Paternal grandmother--dx age unknown Diabetes Maternal grandmother Heart disease Maternal grandmother Brother Colon cancer dx age 62 Denies family history of Ovarian cancer Hyperlipidemia Breast cancer Family history of thyroid problem Uterine cancer Social History Smoking and tobacco/nicotine status: current every day tobacco/nicotine user cigarettes Packs smoked per day: 0.5 Years cigarettes smoked: 20 Alcohol intake: current Alcohol intake frequency: holidays/special occasions only Alcohol type: wine Substance/Drug Use: never Household members: spouse Marital status: Number of children: 4 Highest education level completed: Bachelor's Degree Current occupational status: employed 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
--- NOTE | 2024-08-19 07:46 | P.ANESASSM_ITS ---
Pre-Anesthetic Assessment Height/Weight: Height 1.65 m Weight 83.915 kg Temp Pulse Resp BP Pulse Ox O2 Del Method 97.6 F 86 18 124/95 99 Room Air 08/19/24 06:38 08/19/24 06:38 08/19/24 06:38 08/19/24 06:38 08/19/24 06:38 08/19/24 06:38 Operation Date: 08/19/24 07:30 Proposed Procedures p Colonoscopy - 48528, G0105, Z12.11, Z80.0(Not Applicable) - Felton Barrios DO Familial anesthetic complications: None Was Beta Kiara taken within 24 hours: N/A Was Clonidine taken within 24 hours: N/A Last intake: Intake Last Liquid Date 08/18/24 Last Liquid Time 20:00 Last Solid Date 08/17/24 Last Solid Time 18:00 Social No alcohol and No tobacco Exam alert, oriented x 3, clear to auscultation bilaterally and regular rate & rhythm Medications/Allergies Home Medications Medication Instructions Recorded Confirmed Last Taken Type biotin 10,000 mcg capsule 10,000 mcg PO DAILY 08/24/19 08/17/24 08/18/24 History calcium carbonate (Calcium 600) 600 mg PO DAILY 08/24/19 08/17/24 08/18/24 History cholecalciferol (vitamin D3) 25 50 mcg PO DAILY 08/24/19 08/17/24 08/18/24 History mcg (1,000 unit) capsule multivitamin 1 tab PO DAILY 08/24/19 08/17/24 08/18/24 History vitamin B complex (B 1 tab PO DAILY 08/24/19 08/17/24 08/18/24 History Complex-Vitamin B12 tablet) fish, borage, flaxseed oils-omega 1 cap PO DAILY 12/12/21 08/17/24 08/18/24 History 3,6,9 cb #1 400 mg-400 mg-400 mg cap (Triple [place] 3-6-9) atorvastatin 40 mg tablet 40 mg PO QPM #90 tabs 05/18/24 08/17/24 08/18/24 Rx coQ10 (ubiquinol) 100 mg capsule 100 mg PO DAILY 06/30/24 08/17/24 08/17/24 History (Qunol [place]istan CoQ10) aripiprazole 10 mg tablet (Abilify) 10 mg PO QPM #30 tabs 07/06/24 08/17/24 08/18/24 Rx ospemifene 60 mg tablet (Osphena) 60 mg PO DAILY #90 tabs 07/24/24 08/17/24 08/16/24 Rx Citracal 2 tab PO DAILY 08/17/24 08/17/24 08/18/24 History apple cider vinegar 600 mg capsule 600 mg PO DAILY 08/17/24 08/17/24 08/18/24 History cinnamon bark 500 mg capsule 500 mg PO BID 08/17/24 08/17/24 08/18/24 History (Cinnamon) lisinopril 5 mg tablet 5 mg PO DAILY 08/17/24 08/17/24 08/18/24 History magnesium 200 mg tablet 400 mg PO DAILY 08/17/24 08/17/24 08/18/24 History meloxicam 15 mg tablet 15 mg PO DAILY 08/17/24 08/17/24 08/18/24 History semaglutide 0.25 mg or 0.5 mg (2 0.5 mg SUBCUT .WEEKLY 08/17/24 08/19/24 08/07/24 History mg/3 mL) subcutaneous pen injector ([employer]) vit C-vit Y-gjgrsz-cmutfmkf-omega 1 cap PO DAILY 08/17/24 08/17/24 08/18/24 History 3 100 mg-15 unit-2 mg-100 mg capsule Allergies Allergy/AdvReac Type Severity Reaction Status Date / Time No Known Allergies Allergy Verified 08/17/24 08:13 Current Medications Generic Name Dose Route Start Last Admin Trade Name Freq PRN Reason Stop Dose Admin Sodium Chloride 500 mls @ 15 mls/hr 08/19/24 06:24 08/19/24 06:43 Sodium Chloride 0.9% IV 08/20/24 06:23 15 mls/hr .Q24H PRN Administration COLONOSCOPY FLUIDS PFSH Anesthesia Medical History Nicotine dependence, cigarettes, with unspecified nicotine-induced disorders Family history of colon cancer (~07/2023) Sacroiliac inflammation Strain of thoracic region Benign essential HTN Diabetes mellitus, without long-term current use of insulin Dyslipidemia Bipolar 2 disorder Surgical History Hx of colonoscopy ..--normal; repeat 5 yrs; brother with colon cancer Status post lumbar laminectomy History of endometrial ablation (~2008) H/O knee surgery (~2008) right knee--- arthroscopic History of elbow surgery (~2008) right elbow Family History Father Hypertension Diabetes Stroke Parkinson disease Grandmother Colon cancer Paternal grandmother--dx age unknown Diabetes Maternal grandmother Heart disease Maternal grandmother Brother Colon cancer dx age 62 Denies family history of Ovarian cancer Hyperlipidemia Breast cancer Family history of thyroid problem Uterine cancer Social History Smoking and tobacco/nicotine status: current every day tobacco/nicotine user cigarettes Packs smoked per day: 0.5 Years cigarettes smoked: 20 Alcohol intake: current Alcohol intake frequency: holidays/special occasions only Alcohol type: wine Substance/Drug Use: never Household members: spouse Marital status: Number of children: 4 Highest education level completed: Bachelor's Degree Current occupational status: employed 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
[2024-08-19] MEDS: metoprolol tartrate 1 mg/1 mL SDV 5 mL 2 MG IVP (08:32)
[2024-08-19] MEDS: hyDRALAzine 20 mg/mL INJ 1 mL 10 MG IVP (10:16)
--- NOTE | 2024-08-19 10:45 | ANE.PACU2 ---
Inpatient post-anesthesia follow up: Airway intact: Yes Vital signs: Temperature 97.7 F Pulse Rate 101 Respiratory Rate 18 Blood Pressure 159/90 Pulse Oximetry 97 Oxygen Delivery Me thod Room Air Oxygen Flow Rate Fraction of Inspir ed Oxygen Hydration adequate: Yes Nausea and vomiting: No Pain level: 1 Mental status: Baseline
== END 2024-08-19 10:45 | disposition home or self-care (01) ==
PROVIDERS: PCP Family Medicine; Visit Provider Surgery
PROC: 0DJD8ZZ Inspection of Lower Intestinal Tract, Via Natural or Artificial Opening Endoscopic (ICD-10-PCS; CPT 45378; principal; 2024-08-19 07:30)
DX: Z12.11 Encounter for screening for malignant neoplasm of colon (principal); Z80.0 Family history of malignant neoplasm of digestive organs; K64.8 Other hemorrhoids; I10 Essential (primary) hypertension; E78.5 Hyperlipidemia, unspecified; E11.9 Type 2 diabetes mellitus without complications; Z79.899 Other long term (current) drug therapy; Z79.85 Long-term (current) use of injectable non-insulin antidiabetic drugs; F17.210 Nicotine dependence, cigarettes, uncomplicated
CPT/HCPCS: 36416; 45378; 82962; J0360; J2704; J3490; J7040

== ENCOUNTER → 2024-10-30 08:56 | Outpatient (BNVA) | payer OTHER, SELFPAY | PROVIDERS: PCP Family Medicine; Visit Provider Family Medicine | DX: E11.9 Type 2 diabetes mellitus without complications (principal); E78.5 Hyperlipidemia, unspecified; I10 Essential (primary) hypertension; F17.219 Nicotine dependence, cigarettes, with unspecified nicotine-induced disorders | CPT/HCPCS: 80061; 83036 ==

== ENCOUNTER 2024-12-16 08:34 | Outpatient (CLI) | payer OTHER, SELFPAY ==
--- NOTE | 2024-12-16 08:37 | MM_ITS ---
WS: [id number] BILATERAL SCREENING DIGITAL TOMOSYNTHESIS MAMMOGRAM WITH CAD HISTORY: SCREENING COMPARISON: 12/11/2023, 11/27/2022 Bilateral CC and MLO views with tomosynthesis and synthetic mammography submitted. Computer aided detection analyzed. Breast composition: There are scattered areas of fibroglandular density. No suspicious masses, microcalcifications or architectural distortion. Benign calcifications. MM/MM scr BI tomosynthesis [id number] IMPRESSION: BI-RADS: 2 - Benign. FOLLOW UP: 1 Year Follow-up
== END 2024-12-16 08:35 | disposition home or self-care (01) ==
PROVIDERS: PCP Family Medicine; Visit Provider Nurse Practitioner Women's Health
DX: Z12.31 Encounter for screening mammogram for malignant neoplasm of breast (principal); R92.323 Mammographic fibroglandular density, bilateral breasts; R92.1 Mammographic calcification found on diagnostic imaging of breast
CPT/HCPCS: 77063; 77067

== ENCOUNTER → 2025-03-11 10:20 | Outpatient (BNVA) | payer OTHER, SELFPAY | PROVIDERS: PCP Family Medicine; Visit Provider Nurse Practitioner | DX: S69.90XA Unspecified injury of unspecified wrist, hand and finger(s), initial encounter (principal); X58.XXXA Exposure to other specified factors, initial encounter | CPT/HCPCS: 73110 ==

== ENCOUNTER → 2025-04-27 08:38 | Outpatient (BNVA) | payer OTHER, SELFPAY | PROVIDERS: PCP Family Medicine; Visit Provider Family Medicine | DX: I10 Essential (primary) hypertension (principal); E78.5 Hyperlipidemia, unspecified; E11.9 Type 2 diabetes mellitus without complications | CPT/HCPCS: 80053; 82043; 83036; 84439; 84443; 85025 ==